=== PATIENT | female | born 1960 | race African-American/Black ===

== ENCOUNTER 2018-04-27 10:02 | Emergency (ER) | payer BC ==
[~2018-04-27] VITALS: Ht 170.2 cm; Wt 106.6 kg
[2018-04-27] MEDS ORDERED: MIRAPEX0.25 MG (10:21)
== END 2018-04-27 16:57 | disposition home or self-care (01) ==
LOC: ER 10:02
DX: M54.12 Radiculopathy, cervical region (principal)